=== PATIENT | male | born 1980 | race Caucasian/White ===

== ENCOUNTER 2017-06-17 09:53 | Emergency (ER) | payer MEDICAID ==
[~2017-06-17] VITALS: Ht 175.3 cm; Wt 93.9 kg
[2017-06-17 11:36] VITALS: BP 148/89
== END 2017-06-17 11:36 | disposition home or self-care (01) ==
LOC: ED 09:53
DX: S93.401A Sprain of unspecified ligament of right ankle, initial encounter (principal); V87.8XXA Person injured in other specified noncollision transport accidents involving motor vehicle (traffic), initial encounter; Y93.89 Activity, other specified; Y99.9 Unspecified external cause status; Y92.410 Unspecified street and highway as the place of occurrence of the external cause

== ENCOUNTER 2019-06-25 06:03 | Inpatient (IN) | payer OTHER ==
[~2019-06-25] VITALS: Ht 177.8 cm; Wt 97.5 kg
[2019-06-25 06:16] VITALS: Ht 177.8 cm; Wt 97.5 kg
--- NOTE | 2019-06-25 06:20 | NUR ---
PATIENT WAS BROUGHT IN BY EMS WITH COMPLAINT OF ETOH WITHDRAWAL SYMPTOMS, MUSCLE CRAMPS, SHAKING, NAUSEA. PATIENT SEEN WITH HAND TREMORS.
[2019-06-25 06:48] LABS: BASOPHIL % 0.3 % (0-2); RED CELL DISTRIBUTION WIDTH 13.7 % (11.5-14.5)
[2019-06-25 06:52] LABS: CALCIUM 8.2 mg/dL (8.5-10.1); CARBON DIOXIDE 27.4 mmol/L (21-32); CHLORIDE SERUM 95 mmol/L (98-107); GFR1 > 60 mL/min; GLUCOSE SERUM 155 mg/dL (74-106); POTASSIUM SERUM 3.5 mmol/L (3.5-5.1); SODIUM SERUM 138 mmol/L (136-145)
[2019-06-25 07:00] LABS: ALKALINE PHOSPHATASE 87 U/L (46-116); ALT/SGPT 160 U/L (16-63); AST/SGOT 228 U/L (15-37); BILIRUBIN TOTAL 1.39 mg/dL (0.20-1.00); MAGNESIUM 1.1 mg/dL (1.8-2.4); TOTAL PROTEIN, SERUM 8.2 g/dL (6.4-8.2)
[2019-06-25 07:03] LABS: CHOLESTEROL 280 mg/dL (<200)
--- NOTE | 2019-06-25 07:03 | NUR ---
PATIENT WAS SEEN BY MD. SALINE LOCK INSERTED. FLUID BOLUS IS INFUSING , AND THE PATIENT WAS, MEDICATED WITH ATIVAN. OXYGEN SATURATION DROP TO 88% POST THE ATIVAN. OXYGEN WAS GIVEN.
[2019-06-25 07:13] LABS: PLATELET COUNT 77 x10^3mcL (130-400)
--- NOTE | 2019-06-25 07:48 | NUR ---
PATIENT IS RESTING. REPORT ENDORSED.
--- NOTE | 2019-06-25 08:39 | NUR ---
PT SPEAKING IN FULL CLEAR SENTENCES. REMAINS ON FULL MONITORS.
--- NOTE | 2019-06-25 08:50 | NUR ---
MILD-MODERATE TREMORS SEEN. PT IS CALM AND COOPERATIVE
--- NOTE | 2019-06-25 09:00 | NUR ---
PT COVERED WITH BLANKET. REMAINS ON FULL MONITORS.
[2019-06-25 09:16] LABS: AMPHETAMINE QUAL UR NONE DETECTED (See below)
--- NOTE | 2019-06-25 10:27 | NUR ---
DAD AT BEDSIDE. PT REMAINS ON FULL MONITORS.
--- NOTE | 2019-06-25 11:13 | NUR ---
REPORT GIVEN TO VALERIA RECEIVING TELE NURSE
--- NOTE | 2019-06-25 11:26 | NUR ---
PATIENT ARRIVED TO [facility] ROOM 260 AT THIS TIME, A;ERT AND ORIENTED X 4, MILD TREMORS OBSERVED, DENIED PAIN, WILL ASSESS AND CONTINUE TO MONITOR.
[2019-06-25 11:33] VITALS: BP 135/96
[2019-06-25 16:28] VITALS: BP 148/105
--- NOTE | 2019-06-25 19:05 | NUR ---
REPORT GIVEN TO HAT MAKER NURSE AT THE BEDSIDE, PATIENT AWAKE AND ALERT DURING REPORT. PATIENT ADVISED OF U/S TO BE COMPLETED AT 1930, REMAINS NPO. CARE ENDORSED.
--- NOTE | 2019-06-25 19:05 | NUR ---
RECEIVED PT FROM PREVIOUS SHIFT NURSE. PT AOX4, DENIES JAMISON/DIZZINESS. ON TELE #12, SR, HR 87. DENIES CP/PRESSURE. DENIES SOB/DIFFICULTY BREATHING, ON RA. IV TO RAC, INTACT AND PATENT. BED IN LOWEST POSITION. CALL LIGHT WITHIN REACH. WILL CONTINUE TO MONITOR.
[2019-06-25 20:39] VITALS: BP 136/88
--- NOTE | 2019-06-26 00:50 | NUR ---
PT RESTING IN BED. RR EVEN AND UNLABORED. IN NO ACUTE DISTRESS. CALL LIGHT WITHIN REACH. BED IN LOWEST POSITION. WILL CONTINUE TO MONITOR.
--- NOTE | 2019-06-26 04:01 | NUR ---
PT ACCIDENTALLY REMOVED IV, TIP INTACT. NO REDNESS/SWELLING NOTED. NEW IV PLACED TO RFA, INTACT AND PATENT.
[2019-06-26 06:04] VITALS: BP 155/110
--- NOTE | 2019-06-26 06:18 | NUR ---
PT BP 155/110, DR. GOMEZ NOTIFIED. HYDRALAZINE GIVEN SLOW IVP PER DR. MOREL.
[2019-06-26 06:45] LABS: CARBON DIOXIDE 26.1 mmol/L (21-32); CHLORIDE SERUM 99 mmol/L (98-107); CREATININE SERUM 0.7 mg/dL (0.7-1.3); GFR1 > 60 mL/min; GLUCOSE SERUM 98 mg/dL (74-106); MAGNESIUM 1.6 mg/dL (1.8-2.4); PHOSPHOROUS 2.9 mg/dL (2.5-4.9); POTASSIUM SERUM 3.7 mmol/L (3.5-5.1); SODIUM SERUM 138 mmol/L (136-145)
--- NOTE | 2019-06-26 06:46 | NUR ---
HYDRALAZINE GIVEN SLOW IVP PER DR. MOREL. WILL RECHECK BP.
[2019-06-26 06:48] VITALS: BP 158/108
--- NOTE | 2019-06-26 06:49 | NUR ---
PT BP NOW 158/108, DR. PIEDRA MADE AWARE. NO FURTHER ORDERS AT THIS TIME.
--- NOTE | 2019-06-26 07:10 | NUR ---
RECEIVED BEDSIDE REPORT FROM MEDICAL TECHNOLOGIST GENERALIST NURSE. PATIENT RESTING COMFORTABLY SITTING ON SIDE OF BED. NO APPARENT DISTRESS OR DISCOMFORT NOTED. SIGNIFICANT OTHER AT BEDSIDE. BREATHING EVEN AND UNLABORED. NO RESPIRATORY DISTRESS OR DISCOMFORT NOTED. PATIENT DENIES SHORTNESS OF BREATH. PATIENT DENIES CHEST PAIN. TELE [address] IV TO RIGHT FOREARM PATENT AND INTACT. ALL QUESTIONS AND CONCERNS ADDRESSED. ALL NEEDS ATTENDED TO. WILL CONTINUE TO MONITOR
[2019-06-26 08:23] VITALS: BP 164/108
[2019-06-26 08:55] LABS: BASOPHIL % 0.6 % (0-2); PLATELET COUNT 69 x10^3mcL (130-400); RED CELL DISTRIBUTION WIDTH 13.6 % (11.5-14.5)
--- NOTE | 2019-06-26 10:00 | NUR ---
MORNING MEDICATION ADMINISTERED. PATIENT TOLERATED WELL. NO APPARENT ADVERSE EFFECTS NOTED. ALL NEEDS ATTENDED TO. WILL CONTINUE TO MONITOR
--- NOTE | 2019-06-26 12:08 | NUR ---
PATIENT PULLED IV ACCESS OUT OF RIGHT FOREARM. PATIENT REFUSING NEW IV ACCESS AT THIS TIME. EDUCATED PATIENT TO DRINK FLUIDS AND STAY HYDRATED. PATIENT VERBALIZES UNDERSTANDING. PAGED DR PIEDRA TO REPORT AT THIS TIME.
--- NOTE | 2019-06-26 12:14 | NUR ---
SPOKE TO DR PIEDRA AT THIS TIME REGARDING PATIENT ATIVAN BEING CHANGED FROM IV TO PO DUE TO PATIENT NO HAVING IV ACCESS. PER DR PIEDRA OKAY TO WAIT UNTIL AFTER DINNER TO INSERT IV ACCESS. ALL NEEDS ATTENDED TO. AWAITING ORDERS AT THIS TIME. WILL CONTINUE TO MONITOR
[2019-06-26 12:43] VITALS: BP 146/106
--- NOTE | 2019-06-26 13:00 | NUR ---
PATIENT REQUESTING TO LEAVE AGAINST MEDICAL ADVICE AT THIS TIME. SPOKE TO DR PIEDRA. DR PIEDRA AT BEDSIDE REVIEWING RISKS OF LEAVING AGAINST MEDICAL ADVICE. PATIENT VERBALIZES UNDERSTANDING, BUT IS STILL WILLING TO LEAVE. PATIENT SIGNED DOCUMENTATION ABOUT LEAVING AGAINST MEDICAL ADVICE. ALL QUESTIONS AND CONCERNS ADDRESSED. ALL NEEDS ATTENDED TO. PATIENT HAD NO IV ACCESS. TELE MONITOR REMOVED AND RETURNED TO PROTOTYPE FABRICATOR. REEDUCATED PATIENT LEAVING AGAINST MEDICAL ADVICE IS NOT ADVISED AND THE RISKS AND CONSEQUENCES OF LEAVING AMA. PATIENT VERBALIZES UNDERSTANDING, BUT IS STILL WILLING TO LEAVE AMA. PATIENT INFORMED TO FOLLOW UP WITH PCP AND CONTINUE TAKING BLOOD PRESSURE MEDICATION. PATIENT ESCORTED DOWN TO LOBBY AT THIS TIME.
== END 2019-06-26 13:00 | disposition left against medical advice (07) | DRG 770 ==
LOC: ED 06:03 → DU 10:19
PROVIDERS: Specialist; ADMIT General Practice
DX: F10.239 Alcohol dependence with withdrawal, unspecified (principal); M62.82 Rhabdomyolysis; D69.6 Thrombocytopenia, unspecified; Z68.41 Body mass index [BMI] 40.0-44.9, adult; E83.42 Hypomagnesemia; H54.62 Unqualified visual loss, left eye, normal vision right eye; T51.0X1A Toxic effect of ethanol, accidental (unintentional), initial encounter; Y90.0 Blood alcohol level of less than 20 mg/100 ml; R74.0 Nonspecific elevation of levels of transaminase and lactic acid dehydrogenase [LDH]
CPT/HCPCS: G0378; G0480; J0360; J1885; J2060; J3475; J7030; Q0092